=== PATIENT | male | born 1990 | race Hispanic/Latino ===

== ENCOUNTER 2017-03-12 18:13 | Emergency (ER) | payer SELFPAY ==
[2017-03-12 18:29] VITALS: BP 99/72
[2017-03-12] MEDS ORDERED: DUONEB *Not for PRN Use IH ONE ×3 (18:33→20:21)
[2017-03-12 19:05] LABS: Mean Corpuscular HGB Conc 36 % (32-34); Mean Corpuscular Hemoglobin 32 pg (28-32); Mean Corpuscular Volume 88 fl (84-94); Platelet Count 260 K/mm3 (140-440); Red Blood Count 5.28 M/mm3 (3.65-5.03); Red Cell Distribution Width 12.5 % (13.2-15.2); White Blood Count 9.5 K/mm3 (4.5-11.0)
[2017-03-12 19:08] LABS: Hematocrit 46.3 % (35.5-45.6); Hemoglobin 16.7 gm/dl (11.8-15.2)
[2017-03-12 19:22] LABS: Anion Gap 20 mmol/L; BUN/Creatinine Ratio 17; Blood Urea Nitrogen 12 mg/dL (9-20); Calcium 9.1 mg/dL (8.4-10.2); Carbon Dioxide 24 mmol/L (22-30); Chloride 103.1 mmol/L (98-107); Glucose 93 mg/dL (75-100); Potassium 3.7 mmol/L (3.6-5.0); Sodium 143 mmol/L (137-145)
--- NOTE | 2017-03-12 20:06 | XRay Report ---
FINAL REPORT PROCEDURE: XR CHEST ROUTINE 2V TECHNIQUE: PA and lateral chest radiographs were obtained. CPT 83609 HISTORY: wheezing/sob COMPARISON: No prior studies are available for comparison. FINDINGS: Heart: Normal. Mediastinum/Vessels: Normal. Lungs/Pleural space: Normal. Bony thorax: No acute osseous abnormality. Other: IMPRESSION: Negative examination.
[2017-03-12] MEDS ORDERED: DELTASONE PO ONE (20:21)
--- NOTE | 2017-03-12 20:34 | Emergency Department Report ---
ED Asthma HPI - General Chief Complaint: Adult Asthma Stated Complaint: WHEEZING Time Seen by Provider: 03/12/17 20:14 Source: patient Mode of arrival: Ambulatory Limitations: No Limitations - History of Present Illness Initial Comments: 26-year-old male past medical history asthma, former smoker presents with complaint of asthma exacerbation since this afternoon. Patient states that he is traveling and ran out of his albuterol inhaler and states he also accidentally dropped and broke his nebulizer. Patient denies any history of intubations last ED visit was 6 months ago for asthma. Patient is awake alert and oriented 3 accompanied by girlfriend. Fully lucid speaking in full sentences. No visible respiratory retractions no audible wheezing or stridor. Patient denies fevers or chills. Denies any current smoking. MD Complaint: "asthma attack", wheezing -: This afternoon Asthma History: childhood onset Severity: mild Context: none known Associated Symptoms: none Treatments Prior to Arrival: inhaled bronchodilator - Related Data Current Asthma Therapy: none Previous Rx's Medication Instructions Recorded Last Taken Type ALBUTEROL NEB's [Proventil 0.083% 2.5 mg IH Q4H PRN #1 box 03/12/17 Unknown Rx NEBS] Albuterol Sulfate [Ventolin Hfa] 1 puff IH Q4H PRN #1 hfa.aer.ad 03/12/17 Unknown Rx Nebulizer Accessories [Aeroneb Go] 1 each MC Q4H PRN #1 box 03/12/17 Unknown Rx Nebulizer and Compressor [Portable 1 each MC Q4H PRN #1 each 03/12/17 Unknown Rx Nebulizer System] predniSONE [Deltasone] 40 mg PO QDAY #10 tab 03/12/17 Unknown Rx Allergies Allergy/AdvReac Type Severity Reaction Status Date / Time No Known Allergies Allergy Unverified 03/12/17 18:29 ED Review of Systems ROS: Stated complaint: WHEEZING Other details as noted in HPI Constitutional: denies: chills, fever Eyes: denies: eye pain, eye discharge, vision change ENT: denies: ear pain, throat pain Respiratory: wheezing. denies: cough, shortness of breath Cardiovascular: denies: chest pain, palpitations Endocrine: no symptoms reported Gastrointestinal: denies: abdominal pain, nausea, diarrhea Genitourinary: denies: urgency, dysuria Musculoskeletal: denies: back pain, joint swelling, arthralgia Skin: denies: rash, lesions Neurological: denies: headache, weakness, paresthesias Psychiatric: denies: anxiety, depression Hematological/Lymphatic: denies: easy bleeding, easy bruising ED Past Medical Hx - Past Medical History Hx Asthma: Yes - Surgical History Past Surgical History?: No - Social History Smoking Status: Never Smoker Substance Use Type: None - Medications Home Medications: Home Medications Medication Instructions Recorded Confirmed Last Taken Type ALBUTEROL NEB's [Proventil 0.083% 2.5 mg IH Q4H PRN #1 box 03/12/17 Unknown Rx NEBS] Albuterol Sulfate [Ventolin Hfa] 1 puff IH Q4H PRN #1 hfa.aer.ad 03/12/17 Unknown Rx Nebulizer Accessories [Aeroneb Go] 1 each MC Q4H PRN #1 box 03/12/17 Unknown Rx Nebulizer and Compressor [Portable 1 each MC Q4H PRN #1 each 03/12/17 Unknown Rx Nebulizer System] predniSONE [Deltasone] 40 mg PO QDAY #10 tab 03/12/17 Unknown Rx ED Physical Exam - General Limitations: No Limitations General appearance: alert, in no apparent distress - Head Head exam: Present: atraumatic, normocephalic - Eye Eye exam: Present: normal appearance - ENT ENT exam: Present: mucous membranes moist - Neck Neck exam: Present: normal inspection - Respiratory Respiratory exam: Present: normal lung sounds bilaterally. Absent: respiratory distress - Cardiovascular Cardiovascular Exam: Present: regular rate, normal rhythm. Absent: systolic murmur, diastolic murmur, rubs, gallop - GI/Abdominal GI/Abdominal exam: Present: soft, normal bowel sounds - Rectal Rectal exam: Present: deferred - Extremities Exam Extremities exam: Present: normal inspection - Back Exam Back exam: Present: normal inspection - Neurological Exam Neurological exam: Present: alert, oriented X3 - Psychiatric Psychiatric exam: Present: normal affect, normal mood - Skin Skin exam: Present: warm, dry, intact, normal color. Absent: rash ED Course Vital Signs 03/12/17 03/12/17 18:25 21:37 Temperature 99.1 F Pulse Rate 104 H 97 H Respiratory 26 H 18 Rate Blood Pressure 99/72 O2 Sat by Pulse 100 98 Oximetry ED Medical Decision Making - Lab Data Result diagrams: 03/12/17 18:51 03/12/17 18:51 - Medical Decision Making A/P: Asthma exacerbation, reactive airway disease 1- refill on albuterol tabs, albuterol inhaler 2- short course prednisone 3- normal vital signs, patient does not have any audible wheezing or stridor or retractions before discharge. 4- vital signs stable 5- [facility] Critical care attestation.: If time is entered above; I have spent that time in minutes in the direct care of this critically ill patient, excluding procedure time. ED Disposition Clinical Impression: Wheezing Asthma Qualifiers: Asthma severity: mild Asthma persistence: intermittent Asthma complication type : with acute exacerbation Qualified Code(s): J45.21 - Mild intermittent asthma with (acute) exacerbation Disposition: TO HOME OR SELFCARE Is pt being admited?: No Does the pt Need Aspirin: No Condition: Stable Instructions: Asthma (ED) Prescriptions: ALBUTEROL NEB's [Proventil 0.083% NEBS] 2.5 mg IH Q4H PRN #1 box PRN Reason: Wheezing Albuterol Sulfate [Ventolin Hfa] 1 puff IH Q4H PRN #1 hfa.aer.ad PRN Reason: Wheezing Nebulizer Accessories [Aeroneb Go] 1 each MC Q4H PRN #1 box PRN Reason: Wheezing Nebulizer and Compressor [Portable Nebulizer System] 1 each MC Q4H PRN #1 each PRN Reason: Wheezing predniSONE [Deltasone] 40 mg PO QDAY #10 tab Referrals: [facility] [place] [Outside] - 3-5 Days [facility] [Outside] - 3-5 Days Forms: Accompanied Note, Work/School Release Form(ED) Time of Disposition: 21:57
== END 2017-03-12 22:20 | disposition home or self-care (01) ==
LOC: ED 18:13
DX: J45.909 Unspecified asthma, uncomplicated (principal); Z87.891 Personal history of nicotine dependence
CPT/HCPCS: 36415; 71020; 80048; 85027; 99284; J7512